=== PATIENT | female | born 1940 | race Caucasian/White ===

== ENCOUNTER 2016-11-07 06:30 | Inpatient (IN) | payer OTHER ==
[2016-10-09 08:10] VITALS: BMI 22.0
--- NOTE | 2016-10-09 08:52 | PAT Medication Instructions ---
Service Date Oct 09, 2016. Current Home Medication List Acyclovir (Zovirax), 400 MG PO BID Aspirin (Aspirin), 325 MG PO QAM Atorvastatin (Lipitor), 40 MG PO HS Cyclobenzaprine Hcl (Flexeril), 10 MG PO TID PRN for Muscle Spasms Duloxetine HCl (Cymbalta), 1 CAP PO QPM Duloxetine HCl (Cymbalta), 2 CAP PO QAM Gabapentin (Neurontin), 100 MG PO HS Hydrochlorothiazide (Hydrochlorothiazide), 1 TAB PO QAM Levothyroxine Sodium (Levothyroxine Sodium), 37.5 MG PO QAM Losartan Potassium (Cozaar), 50 MG PO QPM Omeprazole (Prilosec), 20 MG PO QAM Trazodone Hcl (Trazodone), 50 MG PO HS Medication Instructions For Your Scheduled Surgery - Instructions to be given by surgeon: Aspirin (Aspirin), 325 MG PO QAM - Hold the following medications the morning of surgery: Cyclobenzaprine Hcl (Flexeril), 10 MG PO TID PRN for Muscle Spasms Hydrochlorothiazide (Hydrochlorothiazide), 1 TAB PO QAM - Take the following medications the morning of surgery with a sip of water OTHERWISE NOTHING TO EAT OR DRINK AFTER MIDNIGHT: Levothyroxine Sodium (Levothyroxine Sodium), 37.5 MG PO QAM Duloxetine HCl (Cymbalta), 2 CAP PO QAM Omeprazole (Prilosec), 20 MG PO QAM Acyclovir (Zovirax), 400 MG PO BID - Take the following medications as scheduled the night before surgery: Atorvastatin (Lipitor), 40 MG PO HS Gabapentin (Neurontin), 100 MG PO HS Trazodone Hcl (Trazodone), 50 MG PO HS Cyclobenzaprine Hcl (Flexeril), 10 MG PO TID PRN for Muscle Spasms Duloxetine HCl (Cymbalta), 1 CAP PO QPM Acyclovir (Zovirax), 400 MG PO BID -DO NOT take the following medications the night before surgery: Losartan Potassium (Cozaar), 50 MG PO QPM If you have any questions please call us at [phone] (Susie Otero PA-C) or [phone] or [phone]
[2016-10-09 09:28] LABS: BASO % 0.2 %; BASO ABS # 0.01 K/uL (0-0.2); COMPLETE YES; EOS % 1.6 %; HEMATOCRIT 38.1 % (37-47); IG% 0.2 %; LYMPH % 31.8 %; LYMPH ABS # 2.03 K/uL (1.2-3.4); MEAN CELL VOLUME 90.9 fL (80-100); MEAN CORPUSCULAR HEMOGLOBIN 31.7 pg (25-34); MEAN CORPUSCULAR HGB CONC 34.9 g/dl (32-36); MEAN PLATELET VOLUME 9.2 fL (7.4-10.4); MONO % 8.5 %; NEUT % 57.7 %; PLATELET COUNT 243 K/uL (130-400); RED BLOOD COUNT 4.19 M/uL (4.2-5.4); WHITE BLOOD COUNT 6.38 K/uL (4.8-10.8)
--- NOTE | 2016-10-09 09:35 | DIAGNOSTIC IMAGING REPORT ---
CHEST PREADMISSION(PA/LAT) CLINICAL HISTORY: PAT COMPARISON STUDY: No previous studies for comparison. FINDINGS: The bones soft tissues and hemidiaphragms are normal. The cardiomediastinal silhouette is normal. The lungs are clear. The pulmonary vasculature is normal. IMPRESSION: Negative chest. Electronically signed by: Jacob King M.D. 10/09/2016 9:34 AM
[2016-10-09 09:40] LABS: URINE APPEARANCE CLEAR (CLEAR); URINE BILIRUBIN NEG (NEG); URINE COLOR YELLOW; URINE NITRITE NEG (NEG); URINE PH 7.5 (4.5-7.5); URINE SPECIFIC GRAVITY 1.011 (1.000-1.030); UROBILINOGEN NEG (NEG)
[2016-10-09 09:43] LABS: MANUAL MICROSCOPIC REQUIRED? NO; REVIEW REQ? NO
[2016-10-09 09:44] LABS: PROTHROMBIN TIME (PATIENT) 10.5 SECONDS (9.0-12.0)
[2016-10-09 10:09] LABS: BUN/CREATININE RATIO 17.6 (10-20); CREATININE 0.66 mg/dl (0.60-1.20); POTASSIUM 3.9 mmol/L (3.5-5.1)
[2016-10-09 10:38] LABS: CALCIUM 9.1 mg/dl (8.5-10.1)
--- NOTE | 2016-11-06 19:33 | HISTORY & PHYSICAL EXAMINATION ---
DATE OF ADMISSION: 11/07/2016 HISTORY AND PHYSICAL ADMISSION NOTE CHIEF COMPLAINT: Rotator cuff arthropathy of the right shoulder. HISTORY OF PRESENT ILLNESS: Halina is a 76-year-old female who has been dealing with bilateral shoulder pain, right worse than left for 20 years. She does not recall any traumatic events. She is noticing increased pain and weakness in her shoulders. X-rays and clinical examination have been diagnostic for rotator cuff arthropathy of the shoulders and she has elected to proceed with a right reverse shoulder arthroplasty. She understands all the risks, benefits, alternatives to procedure and elected to proceed. PAST MEDICAL HISTORY: Significant for hypothyroidism, depression, hyperlipidemia, and hypertension. PAST SURGICAL HISTORY: Significant for 5 surgeries to her head for venous issues about 2 years ago, a cervical fusion 10 years ago and a cholecystectomy. ALLERGIES: None. MEDICATIONS: Include Vistaril 25 mg daily, Flexeril 10 mg as needed, Cozaar 50 mg daily, Prilosec 20 mg daily, Levoxyl 75 mcg half a tab daily, hydrochlorothiazide 12.5 mg daily, BuSpar 5 mg daily, trazodone 50 mg daily, acyclovir 400 mg twice a day, Lipitor 40 mg daily, Cymbalta 30 mg in the morning and 30 mg in the evening, Neurontin 300 mg daily, and aspirin 325 mg daily. FAMILY HISTORY: Noncontributory. SOCIAL HISTORY: The patient is , has 2 children. She is moderately active. REVIEW OF SYSTEMS: She complains of bilateral shoulder pain, right worse than left. All other pertinent review of systems is negative. PHYSICAL EXAMINATION: GENERAL: She is awake, alert and oriented x3. She is in no apparent distress. She is very pleasant. HEENT: Pupils are equal, round and reactive to light. Extraocular motion intact. Oral mucosa is pink and moist. VITAL SIGNS: Regular rate per radial pulse. LUNGS: Shivani symmetrically bilaterally with no audible breath sounds. ABDOMEN: Soft, nontender, nondistended. MUSCULOSKELETAL: On physical examination of her shoulder, she has about 130 degrees of forward flexion, but she has a lot of scapulothoracic motion. She has crepitus throughout range of motion. She has 3/5 muscle strength with full can testing and 3/5 muscle strength to external rotation. Her radial, median, ulnar and axillary nerves were all intact. IMAGING DATA: X-rays of the shoulder do show advanced rotator cuff arthropathy with superior migration of the humeral head, joint space narrowing and osteophyte formation. IMPRESSION: Rotator cuff arthropathy of the right shoulder. PLAN: Will proceed with a Biomet comprehensive right reverse shoulder arthroplasty. Postoperatively, she will be placed in an arm sling and kept overnight at the hospital for postoperative medical management.
[~2016-11-07] VITALS: Ht 167.6 cm; Wt 63.8 kg
[2016-11-07] VITALS (11 sets, daily range): BP systolic 94–186; BP diastolic 61–96; PULSE 65–101; TEMP 36.2–37; O2SAT 93–99; Ht 167.6 cm; Wt 63.8 kg
[~2016-11-07 06:30] MED LIST: ACETAMINOPHEN 500 MG TAB PO SCH; ACYC1CAP8 PO; ASPI325T45 PO; ATOR-24 PO; CEFAZOLIN 2000 MG/60 ML D5W 60 ML IV SCH; CYCL10TA6 PO; CYM/30 PO; FAMOTIDINE 20 MG TAB PO SCH; FENTANYL CITRATE INJ 50 MCG/1 ML 2 ML VIAL ONE; GABA-112 PO; GABAPENTIN 300 MG CAP PO SCH; HYDR12.55 PO; LACTATED RINGER'S 1000ML IV SCH; LEVO75TA5 PO; LOSA50TA6 PO; MIDAZOLAM HCL 1 MG/ML 2ML VIAL ONE; PRLSR20 PO; ROPIVACAINE 5MG/ML 30 ML 150 MG, BUPIVACAINE/EPINEPHR 0.5% MPF 30 ML, KETOROLAC TROMETH... INFIL SCH; TRAZ50TA35 PO
[2016-11-07] MEDS: TRANEXAMIC ACID INJ 1,000 MG in SODIUM CHLORIDE 0.9% 100ML 100 ML IV SCH ×2 (06:30→08:08)
[2016-11-07] MEDS ORDERED: ROPIVACAINE 0.5% 5 MG/ML 30 ML VIAL ONE (06:35)
[2016-11-07] MEDS ORDERED: BUPIVACAINE/EPINEPHRINE 0.25% 1:200,000 30 ML VIAL ONE (06:36)
[2016-11-07] MEDS ORDERED: PHENYLEPHRINE HCL INJ 10 MG/ML VIAL ONE (08:02)
[2016-11-07] MEDS ORDERED: MIDAZOLAM HCL 1 MG/ML 2ML VIAL ONE (08:02)
[2016-11-07] MEDS ORDERED: GLYCOPYRROLATE INJ 0.2 MG/ML VIAL ONE (08:02)
[2016-11-07] MEDS ORDERED: PROPOFOL IV EMULSION 10 MG/ML 20 ML VIAL IV ONE (08:02)
[2016-11-07] MEDS ORDERED: SUCCINYLCHOLINE CHLORIDE 20 MG/ML 10 ML VIAL IV ONE (08:02)
[2016-11-07] MEDS ORDERED: ONDANSETRON INJ 2 MG/ML 2 ML VIAL ONE (08:02)
[2016-11-07] MEDS ORDERED: LIDOCAINE HCL 2% 2 ML VIAL (20MG/ML) ONE (08:02)
[2016-11-07] MEDS ORDERED: NEOSTIGMINE METHYLSULFATE 5 MG/5 ML SYR ONE (08:02)
[2016-11-07] MEDS ORDERED: DEXAMETHASONE SOD INJ 4 MG/ML VIAL ONE (08:02)
[2016-11-07] MEDS ORDERED: EpHEDrine SULFATE INJ 50 MG/ML AMP ONE (08:02)
[2016-11-07] MEDS ORDERED: FENTANYL CITRATE INJ 50 MCG/1 ML 2 ML VIAL ONE ×2 (08:03→10:17)
--- NOTE | 2016-11-07 09:04 | History & Physical Bridge Note ---
H&P Re-Evaluation Bridge Note: I have examined the patient, reviewed the History & Physical and in the interval since the performance of the History & Physical I have noted the following changes of clinical significance: No changes noted
[2016-11-07] MEDS ORDERED: ORTHO JOINT ANESTHETIC ONE (09:24)
[2016-11-07] MEDS ORDERED: ONDANSETRON INJ 2 MG/ML 2 ML VIAL IV PRN ×2 (09:30→11:45)
[2016-11-07] MEDS ORDERED: FENTANYL CITRATE INJ 50 MCG/1 ML 2 ML VIAL IV PRN (09:30)
[2016-11-07] MEDS ORDERED: EpHEDrine SULFATE INJ 50 MG/ML AMP IV PRN (09:30)
[2016-11-07] MEDS ORDERED: ATROPINE SULFATE 0.1 MG/ML 5ML SYR IV PRN (09:30)
[2016-11-07] MEDS ORDERED: HYDROmorphone INJ 1 MG/ML SYR IV PRN (09:30)
[2016-11-07] MEDS ORDERED: ESMOLOL HCL 10 MG/ML 10 ML VIAL ONE (11:31)
[2016-11-07] MEDS ORDERED: LABETALOL HCL IV 5 MG/ML 20ML ONE (11:31)
--- NOTE | 2016-11-07 11:42 | [facility] Post Operative Brief Note ---
Immediate Operative Summary Operative Date Nov 07, 2016. Pre-Operative Diagnosis Rotator cuff arthropathy of the right shoulder Post-Operative Diagnosis Rotator cuff arthropathy of the right shoulder Procedure(s) Performed Right Reverse Total Shoulder Arthroplasty Surgeon Dr Hayes Trust Evaluation Supervisor Surgeon(s) Karson Navarro PA-C Estimated Blood Loss 400 Findings as above Specimens A. Right humeral head Complication(s) None Disposition Recovery Room / PACU
[2016-11-07] MEDS ORDERED: NALOXONE HCL 0.4 MG/1 ML VIAL/CARP IV PRN (11:45)
[2016-11-07] MEDS ORDERED: METOCLOPRAMIDE HCL INJ 5 MG/ML 2 ML VIAL IV PRN (11:45)
[2016-11-07] MEDS ORDERED: BISACODYL 10 MG SUPP PR PRN (11:45)
[2016-11-07] MEDS ORDERED: SOD PHOSPHATE/SOD BIPHOSPHATE ENEMA 132 ML BTL PR PRN (11:45)
[2016-11-07] MEDS ORDERED: MAGNESIUM HYDROXIDE SUSP 30 ML UDC PO PRN (11:45)
[2016-11-07] MEDS ORDERED: BACITRACIN 50000 UNIT VIAL IR ONE (12:02)
--- NOTE | 2016-11-07 12:39 | OPERATIVE REPORT ---
DATE OF OPERATION: 11/07/2016 PREOPERATIVE DIAGNOSIS: Rotator cuff arthropathy of the right shoulder. POSTOPERATIVE DIAGNOSIS: Same. PROCEDURE: Reverse right total shoulder arthroplasty. SURGEON: Dr. Quan Hayes. WHEEL PRESS CLERK: Karson Navarro PA-C, whose assistance was necessary for positioning the arm and helping with instrumentation. ANESTHESIA: General with a right interscalene nerve block. COMPLICATIONS: None. CONDITION: Stable to PACU. INDICATIONS: Halina is a pleasant 76-year-old female who presented to my office with chronic right shoulder pain. X-rays and clinical examination were diagnostic for cuff arthropathy of the right shoulder. After failing conservative treatment, she elected to undergo a reverse shoulder arthroplasty. On 11/07/2016 she arrived at [facility] for the above procedure. She was seen in the preoperative holding area and the operative extremity was identified and signed. She was given a preoperative antibiotic and a right interscalene nerve block. She was taken back to the operating room, laid on the table in supine position and put under general anesthesia. She was then put into the beachchair position. The right shoulder was prepped and draped in a sterile fashion. A time-out was done and the patient and operative extremity was properly identified. A deltopectoral incision was utilized. Dissection was taken down through the fascia and the anterior shoulder was exposed. The long head of the biceps tendon was tenotomized and the subscapularis was tenotomized off the lesser tuberosity. The proximal humerus was dislocated. Sequential reaming up to a size 9 reamer was done. Off the final reamer, a proximal humeral resection guide was placed and the proximal humerus was resected at 20 degrees of retroversion and 135 degrees of inclination. The head was removed and the glenoid was exposed. Time was spent doing a complete circumferential capsular and labral release. There was some superior glenoid wear. The [employer] signature guide was snapped onto the anterior aspect of the glenoid. A guide pin was sent down the center of the hole. I was not that happy with where it was, it seemed a little anterior, so I placed the pin about 3 mm more posterior. She had a very tricky glenoid. She did not have much bone stock at all. The 25 mm mini base plate was reamed. The inferior bone quality seemed very weak. The superior bone quality seemed stronger. There was some penetration of the inferior baseplate at the end. The final size 25 mm baseplate was tapped into place. A long 40 mm central screw was placed. I felt like the screw went out of the vault and then into the scapular body. I was able to get a fairly good fixation with that. A superior locking screw was placed, followed by an anterior locking screw. This gave good fixation and an inferior locking screw was placed, but it got very poor purchase. Overall, the glenoid baseplate seemed very stable. A 36 mm eccentric glenosphere was then impacted into place. The proximal humerus was exposed. Sequential broaching up to a size 9 broach was done. A standard humeral trial was used. The shoulder was reduced, brought through a full range of motion and felt to be stable. The broach was then removed. The final size 9 press fit stem was impacted into place. The humeral bearing was snapped onto the humeral tray and the ring lock mechanism was engaged. The humeral tray was then impacted onto the top of the humeral component. The shoulder was then reduced, brought through a full range of motion and felt to be stable. There was no instability of the glenoid. The axillary nerve was then palpated. The entire shoulder was irrigated with 3 liters of normal saline solution with bacitracin. Surrounding soft tissues were injected with an orthopedic pain control cocktail. The subscapularis was tenodesed back to the lesser tuberosity with transosseous FiberWire sutures. A drain was placed. Skin was closed with 2-0 Vicryl and running 3-0 V-Loc suture. A Prineo dressing was placed. She was then placed in a soft dressing and a regular arm sling. She was then extubated, [facility] and taken to the postanesthesia care unit in stable condition. She tolerated the procedure well. IMPLANTS USED: I used a Biomet comprehensive reverse right shoulder arthroplasty system. She has a size 9 mini Press-Fit stem, a 25 mm mini baseplate with a 40 mm central screw and 3 peripheral locking screws. There was a 36 mm standard glenosphere and a standard humeral tray and bearing. No cement was used during the case. The bone quality of the glenoid was rather poor in the inferior aspect. The quality was better more superior on the glenoid. I attest to the content of the Intraoperative Record and any orders documented therein. Any exceptions are noted below. DED
--- NOTE | 2016-11-07 12:54 | DIAGNOSTIC IMAGING REPORT ---
RIGHT SHOULDER MIN 2 VIEWS ROUTINE CLINICAL HISTORY: Right shoulder surgery. COMPARISON: Shoulder radiographs August 28, 2016. FINDINGS: Alignment of the right shoulder arthroplasty is anatomic. No fracture or unexpected radiopaque foreign body is present. There are multiple glenoid screws. Surgical drain is in place. IMPRESSION: Expected findings following right shoulder arthroplasty. Electronically signed by: Camacho Ba M.D. 11/07/2016 12:52 PM Dictated Date/Time: 11/07/2016 12:51 PM
--- NOTE | 2016-11-07 13:12 | Anesthesiology Progress Note ---
Anesthesia Post Op Note Date & Time Nov 07, 2016 at 13:11 Vital Signs Pain Intensity: 0 Vital Signs Past 12 Hours Date Time Temp Pulse Resp B/P Pulse Ox O2 Delivery O2 Flow Rate FiO2 11/07/16 13:06 37.1 82 14 102/70 95 Nasal Cannula 3 11/07/16 12:55 37.1 83 14 104/68 95 Nasal Cannula 4 11/07/16 12:45 83 14 115/70 98 Nasal Cannula 4 11/07/16 12:35 85 14 112/74 98 Mask 10 11/07/16 12:25 80 14 136/83 98 Mask 10 11/07/16 12:15 36 79 12 156/96 98 Mask 10 11/07/16 09:15 101 16 147/87 95 Room Air 11/07/16 09:05 98 16 152/88 94 Room Air 11/07/16 08:55 96 16 157/92 96 Room Air 11/07/16 07:00 36.8 90 20 168/96 97 Room Air Notes Mental Status: alert / awake / arousable, participated in evaluation Pt Amnestic to Procedure: Yes Nausea / Vomiting: adequately controlled Pain: adequately controlled Airway Patency, RR, SpO2: stable & adequate BP & HR: stable & adequate Hydration State: stable & adequate Anesthetic Complications: no major complications apparent
[2016-11-07] MEDS: KETOROLAC TROMETHAMINE 15 MG/ML VIAL IV. SCH ×2 (15:19→20:12)
[2016-11-07] MEDS: D5W AND 1/2NSS + 20MEQ KCL 1,000 ML IV SCH ×2 (15:20→23:04)
[2016-11-07] MEDS: ACETAMINOPHEN IV 1,000 MG in EMPTY BAG 0 ML IV SCH ×2 (16:32→23:04)
[2016-11-07] MEDS: CEFAZOLIN IV 1,000 MG in DEXTROSE 5% 50ML 50 ML IV SCH (17:55)
[2016-11-07] MEDS: TRAMADOL HCL 50 MG TAB PO PRN (19:48)
[2016-11-07] MEDS: DOCUSATE SODIUM 100 MG CAP PO SCH (20:55)
[2016-11-07] MEDS ORDERED: TRAZODONE HCL 50 MG TAB PO SCH (21:00)
[2016-11-07] MEDS ORDERED: GABAPENTIN 100 MG CAP PO SCH (21:00)
[2016-11-07] MEDS ORDERED: DULOXETINE (CYMBALTA) 30 MG CAP PO SCH (21:00)
[2016-11-07] MEDS ORDERED: SENNA 8.6 MG TAB PO SCH (21:00)
[2016-11-07] MEDS ORDERED: ATORVASTATIN 40 MG TAB PO SCH (21:00)
[2016-11-07] MEDS: CYCLOBENZAPRINE HCL 10 MG TAB PO PRN (23:07)
[2016-11-08] VITALS (9 sets, daily range): BP systolic 110–156; BP diastolic 65–80; PULSE 91–100; TEMP 36.6–37.1; O2SAT 93–96
[2016-11-08] MEDS: CEFAZOLIN IV 1,000 MG in DEXTROSE 5% 50ML 50 ML IV SCH (01:49)
[2016-11-08] MEDS: KETOROLAC TROMETHAMINE 15 MG/ML VIAL IV. SCH ×3 (01:50→14:08)
[2016-11-08] MEDS ORDERED: LEVOTHYROXINE 75 MCG TAB PO SCH (06:00)
[2016-11-08 06:08] LABS: HEMATOCRIT 23.9 % (37-47); MEAN CELL VOLUME 90.5 fL (80-100); MEAN CORPUSCULAR HEMOGLOBIN 31.4 pg (25-34); MEAN CORPUSCULAR HGB CONC 34.7 g/dl (32-36); MEAN PLATELET VOLUME 8.9 fL (7.4-10.4); PLATELET COUNT 195 K/uL (130-400); RED BLOOD COUNT 2.64 M/uL (4.2-5.4); WHITE BLOOD COUNT 15.81 K/uL (4.8-10.8)
[2016-11-08 06:36] LABS: BUN/CREATININE RATIO 19.1 (10-20); CALCIUM 7.3 mg/dl (8.5-10.1); CREATININE 0.79 mg/dl (0.60-1.20); POTASSIUM 4.4 mmol/L (3.5-5.1)
[2016-11-08] MEDS: ACETAMINOPHEN IV 1,000 MG in EMPTY BAG 0 ML IV SCH (08:17)
[2016-11-08] MEDS: CYCLOBENZAPRINE HCL 10 MG TAB PO PRN (08:21)
[2016-11-08] MEDS: DOCUSATE SODIUM 100 MG CAP PO SCH (08:21)
[2016-11-08] MEDS ORDERED: HYDROCHLOROTHIAZIDE 25 MG TAB PO SCH (09:00)
[2016-11-08] MEDS ORDERED: DULOXETINE HCL 60 MG CAP PO SCH (09:00)
[2016-11-08] MEDS ORDERED: PANTOprazole SOD 40 MG TAB PO SCH (09:00)
[2016-11-08] MEDS ORDERED: MULTIVITAMIN TAB PO SCH (09:00)
[2016-11-08] MEDS ORDERED: ASPIRIN 325 MG ECTAB PO SCH (09:00)
[2016-11-08] MEDS ORDERED: ULT50X PO (09:15)
--- NOTE | 2016-11-08 09:17 | Discharge Instructions ---
Discharge Instructions Admission Reason for Admission: Right Shoulder Degenerative Joint Disease, Full Th Discharge Discharge Diagnosis / Problem: Right Total Shoulder Discharge Goals Goal(s): Decrease discomfort, Improve function Activity Recommendations Activity Limitations: as noted below Shower/Bathe: may shower/bathe in 3 days sling for 3 weeks . Instructions / Follow-Up Instructions / Follow-Up May remove dressing (except Prineo) and shower on Thursday, follow-up in 2 weeks Current Hospital Diet Patient's current hospital diet: Regular Diet Discharge Diet Recommended Diet: Regular Diet Procedures Procedures Performed: Right Reverse Total Shoulder Arthroplasty Pending Studies Studies pending at discharge: no Medical Emergencies . Who to Call and When: Medical Emergencies: If at any time you feel your situation is an emergency, please call 911 immediately. . Non-Emergent Contact Non-Emergency issues call your: Surgeon Call Non-Emergent contact if: wound has increased drainage, wound has increased redness . "Provider Documentation" section prepared by Quan Hayes. VTE Core Measure Inpt VTE Proph given/why not?: Treatment not indicated
--- NOTE | 2016-11-08 09:54 | PROGRESS NOTE ---
DATE: 11/08/2016 CHIEF COMPLAINT: Status post reverse right total shoulder arthroplasty postop day #1. PROGRESS: Halina was seen and examined at bedside today. Overall, she is doing fairly well. She is sitting up in bed. She says she has some soreness in her shoulder, but she does not feel too bad. She has a slightly washed out appearance. She had no acute events overnight. PHYSICAL EXAMINATION: RIGHT SHOULDER: The dressing is clean and dry. She does have a lot of ecchymosis in the area of her axilla. Her radial, median and ulnar nerves were checked and intact at her wrist. Her axillary nerve was not definitively checked yet. The drain is to suction. She is wearing her sling as instructed. LABORATORIES: She has an H\T\H today of 8.3 and 23.9. Her creatinine is stable at 0.79. Her vital signs are stable on room air and she is voiding on her own. X-rays postoperatively of the right shoulder shows the prosthesis to be in good alignment without any evidence of fracture, dislocation or loosening. IMPRESSION: Status post reverse right total shoulder arthroplasty postoperative day #1. PLAN: Her H\T\H is a little bit lower than I would like. I think she had some postoperative bleeding around the axilla. With hematocrit of 23, I would feel safe giving her 1 unit of packed red blood cells before I discharge her home. We will transfuse her with 1 unit this morning. Will check an H\T\H an hour after the transfusion and if the H\T\H is okay, we will go ahead and send her home.
[2016-11-08] MEDS: TRAMADOL HCL 50 MG TAB PO PRN (10:25)
[2016-11-08] MEDS: D5W AND 1/2NSS + 20MEQ KCL 1,000 ML IV SCH (10:51)
[2016-11-08] MEDS ORDERED: LOSARTAN POTASSIUM 50 MG TAB PO SCH (21:00)
--- NOTE | 2016-11-12 22:56 | DISCHARGE SUMMARY ---
DISCHARGE DIAGNOSIS: Rotator cuff arthropathy of the right shoulder. PROCEDURE: Right reverse total shoulder arthroplasty by Dr. Quan Hayes on 11/07/2016. DISCHARGE INSTRUCTIONS: 1. Tramadol 50 mg every 4 hours as needed for pain. 2. Acyclovir 400 mg twice a day. 3. Aspirin 325 mg daily. 4. Lipitor 40 mg daily. 5. Flexeril 10 mg 3 times a day. 6. Cymbalta 30 mg daily. 7. Cymbalta 60 mg daily. 8. Neurontin 100 mg at night. 9. Hydrochlorothiazide 12.5 mg daily. 10. Synthroid 37.5 mcg daily. 11. Cozaar 50 mg daily. 12. Prilosec 20 mg daily. 13. Trazodone 50 mg at night. 14. Right arm sling for 3 weeks. 15. Follow up with Dr. Hayes in 2 weeks. 16. Call the office of Dr. Hayes with any questions or concerns. HOSPITAL COURSE: Halina is a very pleasant 76-year-old female who presented to my office with chronic right shoulder pain. X-rays and clinical examination were diagnostic for rotator cuff arthropathy of the right shoulder. After failing extensive conservative treatment, she elected to undergo a reverse right shoulder arthroplasty. On 11/07/2016, she arrived at [facility] and underwent a right reverse total shoulder arthroplasty without complications. She had a general anesthetic and a right interscalene nerve block. Postoperatively, she was placed in an arm sling and discharged to general orthopedic floor. Her hospital course was relatively uneventful. On postop day #1, her H\T\H was a little bit low at 8.3 and 23.9. I did give her 1 unit of packed red blood cells and her H\T\H normalized to 9.7 and 27.0. She was able to work well with physical therapy and her pain was well controlled. The nursing staff changed the dressing, pulled the drain, and she was discharged on postop day #1 with the above instructions.
== END 2016-11-08 16:10 | disposition home or self-care (01) | DRG 483 ==
LOC: ENRESERVDT → ENRESERVTM → C.ACU 06:30 → C.3E 07:00
PROVIDERS: ADMIT Orthopaedic Surgery; ATTEND Orthopaedic Surgery
PROC: 0RRJ0JZ Replacement of Right Shoulder Joint with Synthetic Substitute, Open Approach (ICD-10-PCS; principal; 2016-11-07 09:00)
DX: M19.011 Primary osteoarthritis, right shoulder (principal); E03.9 Hypothyroidism, unspecified; E78.5 Hyperlipidemia, unspecified; I10 Essential (primary) hypertension; F32.9 Major depressive disorder, single episode, unspecified; Z79.899 Other long term (current) drug therapy